=== PATIENT | female | born 1975 | race Two or more races ===

== ENCOUNTER 2021-01-29 20:13 | Inpatient (IN) | payer OTHER ==
[~2021-01-29] VITALS: Ht 160 cm; Wt 68.0 kg
[2021-01-29] MEDS ORDERED: ZESTRIL40 M1 PO (20:22)
[2021-01-29] MEDS ORDERED: MATULANE50 MG PO (20:22)
--- NOTE | 2021-01-29 20:32 | NUR ---
SE RECIBE PTE ALERTA, ORIENTADA EN ELLEN QUINTON ESFERAS. PTE REFIERE QUE DESDE MAMADOU SE SIENTE CON VOZ PESADA INCLUYENDO EL BRAZO DERECHO. SE JASON S/V SE REALIZA EKG. PRESION MANUAL 200/120. SE LE NOTIFICA A .
--- NOTE | 2021-01-29 21:13 | NUR ---
SE RECIBE PACIENTE FEMENINA ALERTA Y ORIENTADA EN LAS QUINTON ESFERAS LA CUAL SE CONECTA A MOINITOR CARDIACO, OXIMETRIA DE PULSO, SE REALIZA CANALIZACION Y APOLLO DE MUESTRAS BAJO MEDIDAS ASEPTICAS Y DE SEGURIDAD, SE COMIENZA TRATAMIENTO DE CLEVIPREX 50MG/100ML AT 10ML/HR. SE MANTIENE PACIENTE EN OBSERVACION MONITOREANDO PRESION ARTERIAL CADA DOS MINUTOS POR PROTOCOLO DE CLEVIPREX. SE MANTIENE PACIENTE EN OBSEVACION.
== END 2021-02-02 14:39 | disposition home or self-care (01) | DRG 304 ==
LOC: ER 20:13 → ICU-2 23:09 → SEC-K 01-31 18:36 → MEDJ 02-01 16:08
PROVIDERS: ADMIT Internal Medicine; ATTEND Internal Medicine
PROC: 4A12X4Z Monitoring of Cardiac Electrical Activity, External Approach (ICD-10-PCS; principal; 2021-01-29)
PROC: 3E0F7SF Introduction of Other Gas into Respiratory Tract, Via Natural or Artificial Opening (ICD-10-PCS; 2021-01-29)
PROC: B24BZZZ Ultrasonography of Heart with Aorta (ICD-10-PCS; 2021-01-30)
PROC: BW28ZZZ Computerized Tomography (CT Scan) of Head (ICD-10-PCS; 2021-01-30)
PROC: B345ZZZ Ultrasonography of Bilateral Common Carotid Arteries (ICD-10-PCS; 2021-01-31)
PROC: B030ZZZ Magnetic Resonance Imaging (MRI) of Brain (ICD-10-PCS; 2021-01-31)
PROC: B348ZZZ Ultrasonography of Bilateral Internal Carotid Arteries (ICD-10-PCS; 2021-01-31)
DX: I16.9 Hypertensive crisis, unspecified (principal); I63.81 Other cerebral infarction due to occlusion or stenosis of small artery; I67.4 Hypertensive encephalopathy; G81.91 Hemiplegia, unspecified affecting right dominant side; E87.6 Hypokalemia; Z20.822 Contact with and (suspected) exposure to COVID-19; E66.8 Other obesity
CPT/HCPCS: 70553

== ENCOUNTER 2021-07-18 08:00 | Outpatient (CLI) | payer OTHER ==
[~2021-07-18 08:00] MED LIST: MATULANE50 MG PO; ZESTRIL40 M1 PO
== END 2021-07-18 08:30 | disposition home or self-care (01) ==
LOC: PPH VACUNA 08:00
PROVIDERS: ATTEND Emergency Medicine Pediatric Emergency Medicine
DX: Z23 Encounter for immunization (principal)

== ENCOUNTER 2024-12-22 17:55 | Emergency (ER) | payer OTHER ==
[~2024-12-22] VITALS: Ht 157.5 cm; Wt 77.1 kg
[2024-12-22] MEDS ORDERED: CARVEDILOL12.5 MG (18:39)
[2024-12-22] MEDS ORDERED: ARBLI10 MG/1 ML (18:39)
[2024-12-22] MEDS ORDERED: ASA-BUTALB-CAF1 EACH (18:40)
[2024-12-22] MEDS ORDERED: HYDRALAZINE HCL25 MG (18:40)
[2024-12-22] MEDS ORDERED: NORVASC2.5 M1 (18:40)
[2024-12-22] MEDS ORDERED: LIPITOR40 M1 (18:41)
[2024-12-22 20:14] LABS: BASO % 0.3 % (0.1-1.2); EOS # 0.14 (0.04-0.54); EOS % 2.0 % (0.7-7.0); LYMPH # 2.45 (1.18-3.74); LYMPH % 35.9 % (19.3-53.1); MEAN PLATELET VOLUME 10.20 fl (9.4-12.4); MONO # 0.45 (0.24-0.82); MONO % 6.6 % (4.7-12.5); NEUT # 3.76 (1.56-6.13); NEUT % 55.1 % (34.0-71.1); RED CELL DISTRIBUTION WIDTH 12.6 % (11.6-14.4)
[2024-12-22 20:40] LABS: ALT/SGPT 41.0 U/L (12-78); AST/SGOT 16.0 U/L (15-37); BILIRUBIN TOTAL 0.39 mg/dL (0.3-1.2); BUN CREA RATIO 28.0 (7.0-25.0); CREATININE SERUM 1.05 mg/dL (0.55-1.02); GFR 55.25; GLOBULINA 3.0 G/DL (2.4-3.5); GLUCOSE FASTING 101.0 mg/dL (65-100); OSMOLALITY SERUM 295.0 MOSM/KG (275-295)
== END 2024-12-22 21:52 | disposition home or self-care (01) ==
LOC: ER 17:55
PROVIDERS: Preventive Medicine Public Health & General Preventive Medicine
DX: I10 Essential (primary) hypertension (principal); Z86.73 Personal history of transient ischemic attack (TIA), and cerebral infarction without residual deficits

== ENCOUNTER 2024-12-31 12:43 | Emergency (ER) | payer OTHER ==
[~2024-12-31] VITALS: Ht 160 cm; Wt 76.7 kg
[~2024-12-31 12:43] MED LIST changes: +ARBLI10 MG/1 ML; +ASA-BUTALB-CAF1 EACH; +CARVEDILOL12.5 MG; +HYDRALAZINE HCL25 MG; +LIPITOR40 M1; +NORVASC2.5 M1
[2024-12-31] MEDS ORDERED: 0.9 % SODIUM CHLORIDE 1,000 ML IV STA (14:36)
[2024-12-31 15:18] LABS: BASO % 0.2 % (0.1-1.2); EOS # 0.01 (0.04-0.54); EOS % 0.1 % (0.7-7.0); LYMPH # 1.15 (1.18-3.74); LYMPH % 8.4 % (19.3-53.1); MEAN PLATELET VOLUME 10.30 fl (9.4-12.4); MONO # 0.75 (0.24-0.82); MONO % 5.5 % (4.7-12.5); NEUT # 11.64 (1.56-6.13); NEUT % 85.4 % (34.0-71.1); RED CELL DISTRIBUTION WIDTH 12.8 % (11.6-14.4)
[2024-12-31 15:31] LABS: BUN CREA RATIO 23.0 (7.0-25.0); CREATININE SERUM 1.15 mg/dL (0.55-1.02); GFR 49.74; GLUCOSE FASTING 119.0 mg/dL (65-100); OSMOLALITY SERUM 293.0 MOSM/KG (275-295)
[2024-12-31] MEDS ORDERED: FAMOtidine 10 MG/ML (4ML VIAL) IV ONE (16:45)
[2024-12-31] MEDS ORDERED: CIPROFLOXACIN IN 5 % DEXTROSE 400 MG/200 ML PIGGYBAG IV ONE (16:45)
[2024-12-31] MEDS ORDERED: ONDANSETRON HCL 2 MG/ML VIAL IV ONE (16:45)
[2024-12-31 16:58] LABS: URINE APPEARANCE Clear; URINE BILIRRUBIN Negative (NEGATIVE); URINE BLOOD Negative; URINE COLOR Yellow; URINE GLUCOSE Negative (NEGATIVE); URINE KETONE Trace (NEGATIVE); URINE LEUKOCYTE Negative; URINE NITRATE Negative; URINE PROTEIN 30 (NEGATIVE); URINE UROBILINOGEN 0.2 E.U./dl
[2024-12-31 16:59] LABS: URINE BACTERIA 134.3 uL (0.0-1933); URINE EPITHELIAL CELLS 9.2 uL (0.0-38.8); URINE RBC 18.6 uL (0.0-20.8); URINE WBC 8.7 uL (0.0-23.2)
[2024-12-31 17:22] LABS: URINE CAST 0.73 uL (0.0-1.40)
[2024-12-31] MEDS ORDERED: CIPRO500 MG PO (19:10)
[2024-12-31] MEDS ORDERED: METRONIDAZOLE500 MG PO (19:10)
[2024-12-31] MEDS ORDERED: LEVSIN/SL0.125 MG SL (19:10)
[2024-12-31] MEDS ORDERED: PROBIOTIC1 EAC2 PO (19:10)
[2024-12-31] MEDS ORDERED: PEPCID AC20 MG PO (19:10)
[2024-12-31] MEDS ORDERED: KETOROLAC TROMETHAMINE 30 MG VIAL IV STA (21:29)
== END 2024-12-31 21:38 | disposition home or self-care (01) ==
LOC: ER 12:47
PROVIDERS: Emergency Medicine
DX: K52.89 Other specified noninfective gastroenteritis and colitis (principal); K57.30 Diverticulosis of large intestine without perforation or abscess without bleeding; I10 Essential (primary) hypertension

== ENCOUNTER 2025-03-20 12:18 | Inpatient (IN) | payer OTHER ==
[~2025-03-20] VITALS: Ht 162.6 cm; Wt 72.6 kg
[~2025-03-20 12:18] MED LIST changes: +CIPRO500 MG PO; +LEVSIN/SL0.125 MG SL; +METRONIDAZOLE500 MG PO; +PEPCID AC20 MG PO; +PROBIOTIC1 EAC2 PO
[2025-03-20] MEDS ORDERED: CIPROFLOXACIN IN 5 % DEXTROSE 400 MG/200 ML PIGGYBAG IV ONE ×2 (13:54→14:00)
[2025-03-20] MEDS ORDERED: METRONIDAZOLE/SODIUM CHLORIDE 500 MG/100 ML PIGGYBACK IV ONE ×2 (13:54→14:00)
[2025-03-20] MEDS ORDERED: ONDANSETRON HCL 2 MG/ML VIAL ONE ×2 (13:54→22:05)
[2025-03-20] MEDS ORDERED: FAMOTIDINE/PF 20 MG/2 ML VIAL ONE ×2 (13:54→22:06)
[2025-03-20] MEDS ORDERED: 0.9 % SODIUM CHLORIDE 1,000 ML IV SCH (14:00)
[2025-03-20] MEDS ORDERED: ONDANSETRON HCL 2 MG/ML VIAL IV ONE ×2 (14:00→21:45)
[2025-03-20] MEDS ORDERED: FAMOTIDINE/PF 20 MG/2 ML VIAL IV ONE ×2 (14:00→21:45)
[2025-03-20] MEDS ORDERED: MORPHINE SULFATE 4 MG/ML CARTRIDGE IV ONE (14:00)
[2025-03-20 14:30] LABS: BASO % 0.3 % (0.1-1.2); EOS # 0.09 (0.04-0.54); EOS % 0.9 % (0.7-7.0); LYMPH # 1.03 (1.18-3.74); LYMPH % 10.2 % (19.3-53.1); MEAN PLATELET VOLUME 9.80 fl (9.4-12.4); MONO # 0.61 (0.24-0.82); MONO % 6.0 % (4.7-12.5); NEUT # 8.32 (1.56-6.13); NEUT % 82.4 % (34.0-71.1); RED CELL DISTRIBUTION WIDTH 12.7 % (11.6-14.4)
[2025-03-20 14:37] LABS: ERYTHROCYTE SEDIMENTATION RATE 3 mm/hr (0-30)
[2025-03-20 15:17] LABS: ob POSITIVE (NEGATIVE)
[2025-03-20 15:20] LABS: INR 1.03
[2025-03-20 15:25] LABS: ALT/SGPT 46 U/L (12-78); AST/SGOT 17 U/L (15-37); BILIRUBIN TOTAL 0.68 mg/dL (0.3-1.2); BILIRUBIN,CONJUGATED 0.19 mg/dL (0.0-0.2); BUN CREA RATIO 22 (7.0-25.0); CREATININE SERUM 0.86 mg/dL (0.55-1.02); GFR 69.56; GLUCOSE FASTING 109 mg/dL (65-100); OSMOLALITY SERUM 288 MOSM/KG (275-295)
[2025-03-20 17:50] LABS: URINE APPEARANCE Clear; URINE BILIRRUBIN Negative (NEGATIVE); URINE BLOOD Negative; URINE COLOR Yellow; URINE GLUCOSE Negative (NEGATIVE); URINE KETONE Negative (NEGATIVE); URINE LEUKOCYTE Negative; URINE NITRATE Negative; URINE PROTEIN Trace (NEGATIVE); URINE UROBILINOGEN 1.0 E.U./dl
[2025-03-20 17:54] LABS: URINE BACTERIA 328.7 uL (0.0-1933); URINE EPITHELIAL CELLS 24.1 uL (0.0-38.8); URINE RBC 6.5 uL (0.0-20.8); URINE WBC 6.3 uL (0.0-23.2)
[2025-03-20 18:17] LABS: URINE CAST 0.00 uL (0.0-1.40)
[2025-03-20] MEDS ORDERED: CIPROFLOXACIN IN 5 % DEXTROSE 200 ML IV SCH (21:35)
[2025-03-20] MEDS ORDERED: LACTOBACILLUS ACIDOPHILUS 1 CAP CAP PO ONE ×2 (21:45→22:05)
[2025-03-20] MEDS ORDERED: KETOROLAC TROMETHAMINE 30 MG VIAL IV ONE (21:45)
[2025-03-20] MEDS ORDERED: 0.9 % SODIUM CHLORIDE 500 ML IV SCH (21:45)
[2025-03-20] MEDS ORDERED: KETOROLAC TROMETHAMINE 30 MG VIAL ONE (22:05)
[2025-03-20] MEDS ORDERED: ACETAMINOPHEN 325 MG TABLET PO PRN (23:15)
[2025-03-20] MEDS ORDERED: ONDANSETRON HCL 4 MG in 0.9 % SODIUM CHLORIDE 50 ML IV PRN (23:15)
[2025-03-21] MEDS ORDERED: AMLODIPINE BESYLATE 5 MG TABLET PO SCH (09:00)
[2025-03-21] MEDS ORDERED: FAMOTIDINE/PF 20 MG/2 ML VIAL IV SCH ×2 (09:00→21:00)
[2025-03-21] MEDS ORDERED: LOSARTAN POTASSIUM 100 MG TABLET PO SCH (09:00)
[2025-03-21] MEDS ORDERED: CARVEDILOL 12.5 MG TABLET PO SCH (09:00)
[2025-03-21] MEDS ORDERED: ASPIRIN 81 MG TAB.CHEW PO SCH (09:00)
[2025-03-21] MEDS ORDERED: ATORVASTATIN CALCIUM 40 MG TABLET PO SCH (09:00)
[2025-03-21 09:17] VITALS: BP 131/81; O2SAT 96
[2025-03-21] MEDS ORDERED: ACETAMINOPHEN 500 MG GEL..CAP PO PRN (12:45)
[2025-03-21 15:45] VITALS: BP 110/69; O2SAT 96
[2025-03-22 01:58] VITALS: BP 101/67; O2SAT 98
[2025-03-22 09:00] VITALS: BP 138/86; O2SAT 97
[2025-03-22 13:05] LABS: FECAL LEUKOCYTES NEGATIVE (NEGATIVE)
[2025-03-22 16:00] VITALS: BP 112/73; O2SAT 95
[2025-03-23 00:55] VITALS: BP 116/74; O2SAT 98
[2025-03-23 09:07] VITALS: BP 119/77; O2SAT 97
[2025-03-23 17:35] VITALS: BP 121/74; O2SAT 98
[2025-03-24 00:33] VITALS: BP 126/72; O2SAT 100
[2025-03-24 07:30] VITALS: BP 154/79; O2SAT 97
== END 2025-03-24 14:30 | disposition home or self-care (01) | DRG 392 ==
LOC: ER 12:18 → SURG 22:56
PROVIDERS: General Practice; ADMIT Internal Medicine; ATTEND Internal Medicine
PROC: BW21YZZ Computerized Tomography (CT Scan) of Abdomen and Pelvis using Other Contrast (ICD-10-PCS; principal; 2025-03-20)
DX: K52.9 Noninfective gastroenteritis and colitis, unspecified (principal); I10 Essential (primary) hypertension; E66.9 Obesity, unspecified; K80.20 Calculus of gallbladder without cholecystitis without obstruction